=== PATIENT | female | born 1985 | race Caucasian/White ===

== ENCOUNTER 2021-04-14 15:33 | Emergency (ER) | payer OTHER ==
[~2021-04-14] VITALS: Ht 165.1 cm; Wt 72.6 kg
[~2021-04-14 15:33] MED LIST: ACETAMINOPHEN-1 EAC1 PO; IBUPROFEN 800800 M1 PO; ONDANSETRON HCL4 M2 PO; OSELB75 PO; PENICILLIN V P500 MG PO; TRAMADOL 50 MG50 MG PO
[2021-04-14 15:55] VITALS: BP 138/88
== END 2021-04-14 17:15 | disposition left against medical advice (07) ==
LOC: M.ERS 15:33
DX: R42 Dizziness and giddiness (principal); R53.83 Other fatigue; R11.0 Nausea; R51.9 Headache, unspecified; Z53.21 Procedure and treatment not carried out due to patient leaving prior to being seen by health care provider